=== PATIENT | male | born 1945 | race Caucasian/White ===

== ENCOUNTER 2020-02-02 10:50 | Emergency (ER) | payer OTHER ==
--- NOTE | 2020-02-02 12:27 | RAD REPORT ---
EXAM DESCRIPTION: RAD - Forearm Left - 02/02/2020 11:49 am CLINICAL HISTORY: Left forearm pain status post injury FINDINGS: Deformity involves the distal radius. Bony density lies adjacent to the distal radius and scaphoid with a sclerotic border. A fracture line is not seen. All of this appears to be secondary to an old fracture. Osteoporosis No acute fracture or dislocation visualized. If patient continues to have symptoms to suggest an occult fracture then CT would be recommended
--- NOTE | 2020-02-02 12:28 | RAD REPORT ---
EXAM DESCRIPTION: RAD -Hand Left 3 View - 02/02/2020 11:49 am CLINICAL HISTORY: Left hand pain status post injury FINDINGS: Deformity involves the distal radius. Bony density lies adjacent to the distal radius and scaphoid with a sclerotic border. A fracture line is not seen. All of this appears to be secondary to an old fracture. Osteoporosis .Vascular calcifications are present. No acute fracture or dislocation visualized. If patient continues to have symptoms to suggest an occult fracture then CT would be recommended
--- NOTE | 2020-02-02 13:10 | ER ---
Nurse's Notes [facility] Name: Zach Vásquez Age: 74 yrs Sex: Male : 1945 Arrival Date: 02/02/2020 Time: 10:52 Bed 20 Private MD: Iraj Underwood Diagnosis: Fracture of radius;Contusion of left hand;Abrasion of knee;Local infection of the skin and subcutaneous tissue, unspecified Presentation: 02/01 11:07 Chief complaint: Patient states: L wrist and 4th and 5th digit pain after tripping and ss falling in parking lot yesterday. Coronavirus screen: Client denies travel out of the [place] in the last 14 days. At this time, the client does not indicate any symptoms associated with coronavirus-19. Ebola Screen: Patient denies exposure to infectious person. Patient denies travel to an Ebola-affected area in the 21 days before illness onset. Initial Sepsis Screen: Does the patient meet any 2 criteria? No. Patient's initial sepsis screen is negative. Does the patient have a suspected source of infection? No. Patient's initial sepsis screen is negative. Risk Assessment: Do you want to hurt yourself or someone else? Patient reports no desire to harm self or others. Onset of symptoms was February 01, 2020. 11:07 Method Of Arrival: Ambulatory ss 11:07 Acuity: RHEA 4 ss Triage Assessment: 11:12 General: Appears in no apparent distress. uncomfortable, Behavior is calm, cooperative, bp appropriate for age. Pain: Complains of pain in left hand. EENT: No deficits noted. Neuro: No deficits noted. Cardiovascular: No deficits noted. Respiratory: No deficits noted. GI: No signs and/or symptoms were reported involving the gastrointestinal system. : No signs and/or symptoms were reported regarding the genitourinary system. Derm: No deficits noted. Musculoskeletal: Reports pain in left hand. Injury Description: Deformity sustained to left hand. Historical: - Allergies: 11:13 No Known Allergies; ss - PMHx: 11:13 Hypertension; ss - Immunization history:: Adult Immunizations up to date. - Social history:: Smoking status: Patient denies any tobacco usage or history of. Screenin:13 Abuse screen: Denies threats or abuse. Denies injuries from another. Nutritional bp screening: No deficits noted. Tuberculosis screening: No symptoms or risk factors identified. Fall Risk Fall in past 12 months (25 points). No secondary diagnosis (0 pts). No IV (0 pts). Ambulatory Aid- None/Bed Rest/Nurse Assist (0 pts). Gait- Normal/Bed Rest/Wheelchair (0 pts) Mental Status- Oriented to own ability (0 pts). Total Daley Fall Scale indicates Low Risk Score (25-44 pts). Fall prevention measures have been instituted. Side Rails Up X 2 Placed close to Nursing Station Frequent Obs/Assesments occuring As available Patient and Family Educated on Fall Prevention Program and strategies. Assessment: 11:13 General: SEE TRIAGE NOTE. bp 11:54 Reassessment: XRAY COMPLETED, RESUTLS PENDING. bp 13:27 Reassessment: PT D/C HOME AMBULATORY, DX WITH LEFT RADIUS FX. bp Vital Signs: 11:07 BP 131 / 70; Pulse 79; Resp 16; Temp 97.6(TE); Pulse Ox 99% on R/A; Weight 81.65 kg; ss Height 5 ft. 9 in. (175.26 cm); Pain 7/10; 11:54 BP 117 / 71; Pulse 59; Resp 16; Pulse Ox 95% ; bp 13:17 BP 123 / 69; Pulse 56; Resp 16; Temp 97.8; Pulse Ox 99% ; bp 11:07 Body Mass Index 26.58 (81.65 kg, 175.26 cm) ED Course: 10:52 Patient arrived in ED. as 10:52 Iraj Underwood MD is Private Physician. as 10:52 Tri Marte FNP-C is [facility]. kb 10:52 Natanael Arriaza MD is Attending Physician. kb 11:00 Iraj Segura, RN is Primary Nurse. bp 11:11 Triage completed. ss 11:13 Arm band placed on. bp 11:13 Patient has correct armband on for positive identification. Bed in low position. Call bp light in reach. Side rails up X2. 11:49 Forearm Left XRAY In Process Unspecified. EDMS 11:49 Hand Left 3 View XRAY In Process Unspecified. EDMS 13:18 No provider procedures requiring assistance completed. Patient did not have IV access bp during this emergency room visit. Orthoglass splint: Sugar tong splint applied on left arm. Sling applied to. Administered Medications: No medications were administered Outcome: 13:10 Discharge ordered by . frederic 13:28 Discharged to home ambulatory. bp 13:28 Condition: stable 13:28 Discharge instructions given to patient, Instructed on discharge instructions, follow up and referral plans. medication usage, Demonstrated understanding of instructions, follow-up care, medications, splint care, Prescriptions given X 2. 13:35 Patient left the ED. bp Signatures: Dispatcher [employer] EDPR Tri Marte, ASAEL-Alyssa VYAS-Marlys Herman Shelby, RN RN ss Iraj Segura, RN RN bp
--- NOTE | 2020-02-02 13:11 | EDPHYS ---
Physician Documentation [facility] Name: Zach Vásquez Age: 74 yrs Sex: Male : 1945 Arrival Date: 02/02/2020 Time: 10:52 Bed 20 Private MD: Iraj Underwood ED Physician Natanael Arriaza HPI: 02/01 12:05 This 74 yrs old Male presents to ER via Ambulatory with complaints of Wrist kb Injury, Finger Injury. 12:05 The patient or guardian reports deformity, injury, pain, swelling, tenderness. The kb complaints affect the left wrist diffusely. Context: The problem was sustained at home, resulted from a fall, on an outstretched hand. Onset: The symptoms/episode began/occurred yesterday. Modifying factors: The symptoms are alleviated by nothing, the symptoms are aggravated by nothing. Associated signs and symptoms: The patient has no apparent associated signs or symptoms. The patient has not experienced similar symptoms in the past. The patient has not recently seen a physician. Historical: - Allergies: 11:13 No Known Allergies; ss - PMHx: 11:13 Hypertension; ss - Immunization history:: Adult Immunizations up to date. - Social history:: Smoking status: Patient denies any tobacco usage or history of. ROS: 12:03 Constitutional: Negative for fever, chills, and weight loss, Cardiovascular: Negative kb for chest pain, palpitations, and edema, Respiratory: Negative for shortness of breath, cough, wheezing, and pleuritic chest pain, Abdomen/GI: Negative for abdominal pain, nausea, vomiting, diarrhea, and constipation, Back: Negative for injury and pain, Skin: Negative for injury, rash, and discoloration, Neuro: Negative for headache, weakness, numbness, tingling, and seizure. 12:03 MS/extremity: Positive for injury or acute deformity, pain, swelling, tenderness, of the left wrist and left hand. Exam: 12:03 Constitutional: This is a well developed, well nourished patient who is awake, alert, kb and in no acute distress. Head/Face: Normocephalic, atraumatic. Chest/axilla: Normal chest wall appearance and motion. Nontender with no deformity. No lesions are appreciated. Cardiovascular: Regular rate and rhythm with a normal S1 and S2. No gallops, murmurs, or rubs. Normal PMI, no JVD. No pulse deficits. Respiratory: Lungs have equal breath sounds bilaterally, clear to auscultation and percussion. No rales, rhonchi or wheezes noted. No increased work of breathing, no retractions or nasal flaring. Abdomen/GI: Soft, non-tender, with normal bowel sounds. No distension or tympany. No guarding or rebound. No evidence of tenderness throughout. Neuro: Awake and alert, GCS 15, oriented to person, place, time, and situation. Cranial nerves II-XII grossly intact. Motor strength 5/5 in all extremities. Sensory grossly intact. Cerebellar exam normal. Normal gait. 12:03 Musculoskeletal/extremity: Extremities: grossly normal except: noted in the left wrist: deformity, pain, swelling, tenderness, noted in the left ring finger: pain, swelling, tenderness, ROM: intact in all extremities, Circulation is intact in all extremities. Sensation intact. Vital Signs: 11:07 BP 131 / 70; Pulse 79; Resp 16; Temp 97.6(TE); Pulse Ox 99% on R/A; Weight 81.65 kg; ss Height 5 ft. 9 in. (175.26 cm); Pain 7/10; 11:54 BP 117 / 71; Pulse 59; Resp 16; Pulse Ox 95% ; bp 13:17 BP 123 / 69; Pulse 56; Resp 16; Temp 97.8; Pulse Ox 99% ; bp 11:07 Body Mass Index 26.58 (81.65 kg, 175.26 cm) Procedures: 13:16 Splinting: Splint applied to left arm using Orthoglass splint, applied by tech. kb Examined by me, post splint application: neurovascular intact, 2+ distal pulses palpable, brisk capillary refill noted, Patient tolerated well. MDM: 10:54 Patient medically screened. kb 12:03 Data reviewed: vital signs, nurses notes. Data interpreted: Pulse oximetry: on room air kb is 95 %. Interpretation: normal. Counseling: I had a detailed discussion with the patient and/or guardian regarding: the historical points, exam findings, and any diagnostic results supporting the discharge/admit diagnosis, radiology results, the need for outpatient follow up, a orthopedic surgeon, to return to the emergency department if symptoms worsen or persist or if there are any questions or concerns that arise at home. 13:16 ED course: while discussing discharge instructions, I noticed drainage coming from kb beneath bandage on knee. When I asked pt about it he said he scraped it when he fell, but it felt ok so he didn't mention it. Drainage is purulent. Will prescribe keflex . 02/01 11:03 Order name: Forearm Left XRAY; Complete Time: 12:44 kb 02/01 11:03 Order name: Hand Left 3 View XRAY; Complete Time: 12:44 kb 02/01 13:01 Order name: Sugar Tong Forearm Splint; Complete Time: 13:17 kb 02/01 13:01 Order name: Sling; Complete Time: 13:16 kb Administered Medications: No medications were administered Disposition: 14:41 Co-signature as Attending Physician, Natanael Arriaza MD I agree with the assessment and kdr plan of care. Disposition: 02/02/20 13:10 Discharged to Home. Impression: Fracture of radius, Contusion of left hand, Abrasion of knee, Local infection of the skin and subcutaneous tissue, unspecified. - Condition is Stable. - Discharge Instructions: Forearm Fracture, [id number], Hand Contusion, [id number]. - Prescriptions for Tylenol- Codeine #3 300-30 mg Oral Tablet - take 2 tablets by ORAL route every 6 hours As needed; 16 tablet. Keflex 500 mg Oral Capsule - take 1 capsule by ORAL route every 8 hours for 10 days; 30 capsule. - Medication Reconciliation Form, Thank You Letter, Antibiotic Education, Prescription Opioid Use form. - Follow up: Emergency Department; When: As needed; Reason: Worsening of condition. Follow up: Private Physician; When: 2 - 3 days; Reason: Recheck today's complaints, Continuance of care, Re-evaluation by your physician. Signatures: Dispatcher [employer] EDMS Tri Marte, ASAEL-C ASAEL-Natanael Orta MD MD kdr Smirch, Shelby, RN RN ss Peltier, Brian, RN RN bp Corrections: (The following items were deleted from the chart) 13:16 13:10 02/02/2020 13:10 Discharged to Home. Impression: Fracture of radius; Contusion of kb left hand. Condition is Stable. Forms are Medication Reconciliation Form, Thank You Letter, Antibiotic Education, Prescription Opioid Use. Follow up: Emergency Department; When: As needed; Reason: Worsening of condition. Follow up: Private Physician; When: 2 - 3 days; Reason: Recheck today's complaints, Continuance of care, Re-evaluation by your physician. kb 13:35 13:16 02/02/2020 13:10 Discharged to Home. Impression: Fracture of radius; Contusion of bp left hand; Abrasion of knee; Local infection of the skin and subcutaneous tissue, unspecified. Condition is Stable. Discharge Instructions: Forearm Fracture, [id number], Hand Contusion, [id number]. Prescriptions for Tylenol-Codeine #3 300-30 mg Oral Tablet - take 2 tablets by ORAL route every 6 hours As needed; 16 tablet, Keflex 500 mg Oral Capsule - take 1 capsule by ORAL route every 8 hours for 10 days; 30 capsule. and Forms are Medication Reconciliation Form, Thank You Letter, Antibiotic Education, Prescription Opioid Use. Follow up: Emergency Department; When: As needed; Reason: Worsening of condition. Follow up: Private Physician; When: 2 - 3 days; Reason: Recheck today's complaints, Continuance of care, Re-evaluation by your physician. kb
[2020-02-02 13:43] VITALS: BP 123/69; TEMP 97.8; O2SAT 99
== END 2020-02-02 13:35 | disposition home or self-care (01) ==
LOC: ER 10:50
PROC: 2W3DX1Z Immobilization of Left Lower Arm using Splint (ICD-10-PCS; principal; 2020-02-02)
DX: S52.92XA Unspecified fracture of left forearm, initial encounter for closed fracture (principal); S60.222A Contusion of left hand, initial encounter; S80.212A Abrasion, left knee, initial encounter; L08.9 Local infection of the skin and subcutaneous tissue, unspecified; W19.XXXA Unspecified fall, initial encounter; Y93.9 Activity, unspecified; Y92.009 Unspecified place in unspecified non-institutional (private) residence as the place of occurrence of the external cause; I10 Essential (primary) hypertension
CPT/HCPCS: 99283